=== PATIENT | female | born 1960 | race Caucasian/White ===

== ENCOUNTER 2017-08-08 15:16 | Outpatient (CLI) | payer OTHER ==
--- NOTE | 2017-08-09 07:16 | RAD ---
CHEST 2 VIEWS: Date: 08/08/17 HISTORY: J21.9, bronchiolitis. COMPARISON: CT dated 04/15/11. FINDINGS: Lungs are without focal air space consolidation, pneumothorax, or effusion. Cardiac silhouette and me diastinal contours within normal limits. There is a prominent costochondral calcification anterior right first rib. IMPRESSION: No acute intrathoracic abnormality. POS: [facility]
== END 2017-08-08 15:17 | disposition home or self-care (01) ==
LOC: BURRAD 15:16
PROVIDERS: ATTEND Family Medicine
DX: J21.9 Acute bronchiolitis, unspecified (principal)
CPT/HCPCS: 71046

== ENCOUNTER 2020-02-11 09:20 | Outpatient (CLI) | payer OTHER ==
--- NOTE | 2020-02-11 19:29 | RAD ---
LUMBAR SPINE THREE VIEWS: Date: 02-11-2020 Comparison: 08-26-18 FINDINGS: There has been no adverse interval change. No acute fracture or disc space narrowing was seen. The SI joints are symmetrical. No bony anomalies of concern were found. IMPRESSION: No acute finding. POS: [facility]
--- NOTE | 2020-02-11 19:30 | RAD ---
RIGHT HIP TWO VIEWS: Date: 02-11-2020 FINDINGS: No fracture or joint space narrowing was seen. There is no significant arthritic change. No bony dest ructive lesions are present. IMPRESSION: No acute finding. POS: [facility]
--- NOTE | 2020-02-11 19:37 | RAD ---
LEFT HIP TWO VIEWS: Date: 02-11-2020 FINDINGS: No fracture or bony destructive lesion was seen. The joint space is normal in width and no arthritic changes of concern were noted. IMPRESSION: No acute finding. POS: HOME
== END 2020-02-11 09:21 | disposition home or self-care (01) ==
LOC: BURRAD 09:20
PROVIDERS: ATTEND Family Medicine
DX: M54.5 Low back pain (principal); M25.551 Pain in right hip; M25.552 Pain in left hip
CPT/HCPCS: 72100

== ENCOUNTER 2021-07-24 09:58 | Outpatient (CLI) | payer OTHER | END 2021-07-24 09:59 | disposition home or self-care (01) | LOC: BURRAD 09:58 | PROVIDERS: ATTEND Family Medicine | DX: R05.9 Cough, unspecified (principal) | CPT/HCPCS: 71046 ==

== ENCOUNTER 2023-03-10 09:20 | Outpatient (CLI) | payer OTHER | END 2023-03-10 09:21 | disposition home or self-care (01) | LOC: BURRAD 09:20 | PROVIDERS: ATTEND Family Medicine | DX: G89.4 Chronic pain syndrome (principal); M15.2 Bouchard's nodes (with arthropathy); M19.011 Primary osteoarthritis, right shoulder; M19.012 Primary osteoarthritis, left shoulder; M15.1 Heberden's nodes (with arthropathy) ==